=== PATIENT | female | born 1995 | race Two or more races ===

== ENCOUNTER 2018-07-15 14:11 | Emergency (ER) | payer BC ==
--- NOTE | 2018-07-15 14:28 | EDPHY ---
H & P Stated Complaint: L hip pain post fall snowboarding;able to finish run to base. No other inj Time Seen by Provider: 07/15/18 14:28 HPI/ROS: HPI: This is a 22-year-old female who presents with Chief Complaint: L hip pain post fall snowboarding;able to finish run to base. No other inj Location: Left hip Quality: Injury Duration: 1 hr prior to arrival Signs and Symptoms: No bleeding, no radiation, no numbness, no weakness, no tingling, no incontinence, + decreased range of motion, no swelling, + pain, no fever Timing: Acute, constant Severity: Moderate Context: Patient was snowboarding at [facility] when she fell down and landed directly on her left hip. She reports that she is able to snowboard down the entire [place]. She reports that she felt immediate, constant, moderate pain in her left gluteus jacki muscle left upper leg and left hip area. She reports that pain is increased with flexion and extension. Denies LOC /head injury/neck pain/dizziness/nausea/vomiting/amnesia. LMP 1-7 days ago. Modifying Factors: None Comment: ROS: A comprehensive 10 system review of systems is otherwise negative aside from elements mentioned in the history of present illness. MEDICAL/SURGICAL/SOCIAL HISTORY: Medical history: Generally healthy. Does not take any regular medications. Surgical history: Denies Social history: Never smoked. CONSTITUTIONAL: Tearful, young adult white female, awake and alert, no obvious distress HEENT: Atraumatic and normocephalic. NECK: supple, no midline tenderness, flexion 45 degrees, extension 45 degrees, right and left lateral flexion 45 degrees. No meningismus. Cardiovascular: Normal S1/S2, regular rate, regular rhythm, without murmur rub or gallop. PULMONARY/CHEST: Symmetrical and nontender. no crepitus. Clear to auscultation bilaterally. Good air movement. No accessory muscle usage. ABDOMEN: Soft, nondistended, nontender, no ecchymosis. PELVIC: no pain with rocking; bilateral hips flexion 125 degrees, extension 30 degrees, with no pain internal rotation and no pain external rotation. BACK: No midline tenderness, no paraspinous spasm, deep tendon reflexes 2/2, no pain with straight leg raise, No foot drop. Achilles reflexes are equal bilaterally. Able to walk on heels and toes without difficulty. EXTREMITIES: 2/2 pulses, strength 5/5, left HIP: Moderate tenderness at the belly of the hamstring muscle but no obvious deformity or bruising noted. Flexion to 125, extension to 115, hyper extension to 15, abduction to 45. Pain with internal rotation and external rotation. Moderate tenderness over greater trochanter. DIP/PIP/MCP flexion/extension intact with good light touch sensation. no deformities, no clubbing, no cyanosis or edema. NEUROLOGICAL: no focal neuro deficits. GCS 15. Light touch sensation intact. SKIN: Warm and dry, no erythema. no rash. Good capillary refill. Source: Patient Exam Limitations: No limitations - Personal History LMP (Females 10-55): 1-7 Days Ago Current Tetanus Diphtheria and Acellular Pertussis (TDAP): Yes - Medical/Surgical History Other PMH: healthy - Social History Smoking Status: Never smoked Constitutional: Initial Vital Signs Temperature (C) 36.7 C 07/15/18 14:13 Heart Rate 96 07/15/18 14:13 Respiratory Rate 18 07/15/18 14:13 Blood Pressure 136/81 H 07/15/18 14:13 O2 Sat (%) 98 07/15/18 14:13 O2 Delivery Mode Room Air Allergies/Adverse Reactions: No Known Allergies Allergy (Unverified 07/15/18 15:21) Home Medications: Medication Instructions Recorded NK [No Known Home Meds] 07/15/18 Medical Decision Making - Diagnostics Imaging Results: Imaging Impressions Hip X-Ray 07/15/18 14:33 Impression: Negative. No acute fracture. Procedures: Procedure: Splint placement. Crutches were given and instructions by Emergency Room regulatory technician. After application of the splint I returned and re-examined the patient. The splint was adequately immobilizing the joint and distal to the splint the patient's circulation and sensation was intact. ED Course/Re-evaluation: Vital signs reviewed and stable upon arrival. Left hip x-ray ordered no fracture, dislocation Patient given p. O. Ibuprofen 100 mg and p.o. Flexeril 10 mg Patient given crutches with orthopedic follow-up as needed No signs of neurovascular compromise/tenting of skin/compartment syndrome/ extremities and joints examined above and below area of concern and are neurovascularly intact. This patient was seen under the supervision of my secondary supervising physician. I evaluated care for this patient independently. Discussed this patient with Dr. Schmitt who did not see the patient. Differential Diagnosis: Differential diagnosis includes but is not limited to hip fracture, contusion, hematoma, hamstring strain, quadriceps strain. - Data Points Medications Given: Discontinued Medications Cyclobenzaprine HCl (Flexeril) 10 mg PO EDNOW ONE Stop: 07/15/18 14:34 Last Admin: 07/15/18 14:46 Dose: 10 mg Ibuprofen (Motrin) 800 mg PO EDNOW ONE Stop: 07/15/18 14:34 Last Admin: 07/15/18 14:46 Dose: 800 mg Departure - Departure Disposition: Home, Routine, Self-Care Clinical Impression: Strain of left hamstring muscle Qualifiers: Encounter type: initial encounter Qualified Code(s): S76.312A - Strain of muscle, fascia and tendon of the posterior muscle group at thigh level, left thigh, initial encounter Injury of hip and thigh Qualifiers: Encounter type: initial encounter Laterality: left Qualified Code(s): S79.912A - Unspecified injury of left hip, initial encounter Condition: Good Instructions: Muscle Strain (ED) Additional Instructions: Use crutches to aid ambulation until pain free or seen by Orthopedics. Start with toe-touch weight-bearing status. Take Tylenol 650 mg every 4 hours and/or Ibuprofen 600 mg every 8 hours with food as needed for pain. Apply ice for 30 minutes at a time; 2-3 times per day for the next 1-2 days. Follow up with Orthopedics in 5-7 days if symptoms persist at which time they will evaluate and recommend with you if conservative management versus further imaging is indicated. The x-rays obtained in the emergency department today demonstrate no evidence of an obvious fracture. Sometimes fractures are not obvious on the initial set of x-rays performed in the ED. For this reason, you should have repeat x-rays performed in 7-10 days if you are having any pain exclude the possibility of an occult fracture. Referrals: Alexi Sims MD [Medical Doctor] - As per Instructions Stand Alone Forms: Work Excuse
[2018-07-15] MEDS ORDERED: CYCLOBENZAPRINE 10 MG TAB PO ONE (14:33)
[2018-07-15] MEDS ORDERED: IBUPROFEN 800 MG TAB PO ONE (14:33)
[2018-07-15 16:04] VITALS: BP 127/75
== END 2018-07-15 16:04 | disposition home or self-care (01) ==
DX: S76.312A Strain of muscle, fascia and tendon of the posterior muscle group at thigh level, left thigh, initial encounter (principal); S79.912A Unspecified injury of left hip, initial encounter; V00.311A Fall from snowboard, initial encounter; Y93.23 Activity, snow (alpine) (downhill) skiing, snowboarding, sledding, tobogganing and snow tubing; Y92.828 Other wilderness area as the place of occurrence of the external cause; Y99.8 Other external cause status

== ENCOUNTER → 2019-01-07 | Outpatient (CLI) | payer BC | LOC: BMCIMAGING 11:32 ==